=== PATIENT | male | born 1985 | race Caucasian/White ===

== ENCOUNTER → 2016-12-26 | Emergency (ER) ==
[2016-12-26 16:17] VITALS: BP 143/91
--- NOTE | 2016-12-26 16:34 | PROVIDER DOCUMENTATION ---
HPI-Musculoskeletal Pain/Inj - GENERAL Chief Complaint: Extremity Pain Stated Complaint: LEFT FOOT INJURY Time Seen by Provider: 12/26/16 16:28 Source: patient - HX OF PRESENT ILLNESS-MUSKULOSKELTAL Nature of Presenting Problem: C/O PAIN TO LEFT FOOT PLANTAR SURFACE MID BALL OF FOOT. HAS SEEN PCP "HE WOULDN 'T CUT IT OUT." Vital Signs Temp Pulse Resp BP Pulse Ox 12/26/16 16:15 98.5 F 98 H 18 143/91 100 Quality of Pain: reports: aching Severity in ED: mild Onset/Duration: other (ONE MONTH) Timing: still present Modifying Factors: improves with: nothing Any recent injury?: No Locality of Occurance: Home Similar Symptoms Previously?: No Recently seen or treated by another doctor?: Yes ("I SAW MY DOCTOR." ) - LOWER EXTREMITY PAIN/INJURY Lower Extremities Pain: foot: left (CALLOUS PLANTAR SURFACE, ~0.5 CM AREA--NO PUSTULE, VESICLE OR REDNESS PAIN WITH TOUCH) Associated Symptoms: reports: denies symptoms Review of Systems - Adult - REVIEW OF SYSTEMS - ADULT Constitutional: reports: no symptoms reported Eyes: reports: no symptoms reported Ears, Nose, Mouth & Throat: reports: no symptoms reported Cardiovascular: reports: no symptoms reported Respiratory: reports: no symptoms reported Gastrointestinal: reports: no symptoms reported Genitourinary: reports: no symptoms reported Musculoskeletal: reports: see HPI Integumentary: reports: see HPI Neurological: reports: no symptoms reported Psychiatric: reports: no symptoms reported Endocrine: reports: no symptoms reported Hematologic/Lymphatic: reports: no symptoms reported Allergic/Immunologic: reports: no symptoms reported All Other Systems: Reviewed and Negative Past History - Adult - PAST MEDICAL HISTORY-ADULT Review of Records: reports: Nursing Assessment Review, Medications Reviewed Major Childhood Illnesses: reports: denies history Cardiovascular: reports: denies history Respiratory: reports: denies history Gastrointestinal: reports: denies history Genitourinary: reports: denies history Musculoskeletal: reports: denies history Neurological: reports: denies history Psychiatric: reports: denies history Endocrine/Immune: reports: denies history Other Conditions: reports: denies history - PRIOR SURGERIES/PROCEDURES Surgical/Procedure History: reports: other (LEFT ROTATOR CUFF, LEFT HAND) - FAMILY HISTORY Family History: reviewed, not pertinent - SOCIAL HISTORY Smoking: non-smoker Physical Exam-Injury Related - Physical Exam-Injury Related Initial Vital Signs Reviewed: Yes General Appearance: appears well, mild distress Immobilization?: negative: backboard, C-collar, applied in ED, applied [employer] Eyes: PERRL/EOMI, pink conjunctivae Head, Ears, Nose, Mouth & Throat: normocephalic/atraumatic Respiratory: lungs clear Cardiovascular: regular rate, rhythm Peripheral Pulses: dorsalis-pedis (L): 4+ Extremity: tenderness (LEFT PLANTAR SURFACE 0.5 CM CALLUS NOTED.) Integumentary: warm Neurologic: grossly normal Psych/Mental Status: normal mood/affect, normal thought content, normal thought process Progress - PLAN OF CARE/RESULTS Progress/Plan/Lab Results: Vital Signs Temp Pulse Resp BP Pulse Ox 12/26/16 16:15 98.5 F 98 H 18 143/91 100 No Known Allergies Allergy (Verified 12/26/16 16:39) Ibuprofen 800 mg PO BID #20 tablet 12/26/16 REFERRED TO [facility] Follow Up Instructions: You have been treated by a care provider in the Emergency Department. These instructions are being provided to you so you can have an understanding of how to care for yourself upon discharge. Upon discharge from the Emergency Department, you are responsible for making arrangements for follow-up care by a physician of your choice. Take all prescribed medications as directed. Return to the Emergency Department immediately for any new or worsening symptoms. You may call the Physician Referral phone number at [phone] to obtain a list of Physicians who are taking new patients. Departure - Departure Time of Disposition Order: 16:34 DIAGNOSIS: Foot callus Disposition: HOME 01 Certified Medical Emergency: Emergent Condition: Stable Additional Instructions: TAKE MOTRIN WITH FOOD. USE OVER THE COUNTER CALLOUS CUSHIONS. CALL DR. OJEDA FOR FURTHER EVALUATION AND MANAGEMENT. RETURN TO ER FOR ANY WORSENING SYMPTOMS. ED Follow Up Instructions: You have been treated by a care provider in the Emergency Department. These instructions are being provided to you so you can have an understanding of how to care for yourself upon discharge. Upon discharge from the Emergency Department, you are responsible for making arrangements for follow-up care by a physician of your choice. Take all prescribed medications as directed. Return to the Emergency Department immediately for any new or worsening symptoms. You may call the Physician Referral phone number at [phone] to obtain a list of Physicians who are taking new patients. Prescriptions: Ibuprofen 800 mg PO BID #20 tablet Referrals: Estuardo Flores [Primary Care Provider] - Cedric Ojeda DPM [STAFF PHYSICIAN] - Forms: Return to School/Parent Work Instructions: Bunion (Hallux Valgus)
== END | disposition home or self-care (01) ==
LOC: ED 15:49
DX: L84 Corns and callosities (principal)